=== PATIENT | female | born 1970 | race African-American/Black ===

== ENCOUNTER 2022-03-04 02:29 | Emergency (ER) | payer MEDICAID ==
[~2022-03-04] VITALS: Ht 170.2 cm; Wt 74.0 kg
[~2022-03-04 02:29] MED LIST: FAMO-135 MT
[2022-03-04 04:42] LABS: BASOPHILS % 0.6 % (0.0-2.0); EOSINOPHILS % 1.1 % (0.0-5.0); HEMATOCRIT. 40.4 % (36.0-48.0); MEAN CORPUSCULAR HEMOGLOBIN 34.4 pg (28.0-32.0); MEAN CORPUSCULAR VOLUME 99.2 fL (81.0-99.0); MEAN PLATELET VOLUME 8.2 fl (7.4-10.4); MONOCYTES % 10.1 % (2.0-8.0); NEUTROPHILS % 60.2 % (40.0-76.0); PLATELET 272 x1000/uL (130-400); RED BLOOD CELL COUNT 4.07 mill/uL (4.2-5.4); RED CELL DISTRIBUTION WIDTH 14.7 % (11.6-14.6)
[2022-03-04 04:49] LABS: CHLORIDE 101 mEq/L (98-107)
[2022-03-04] MEDS ORDERED: POTASSIUM CHLORIDE 20MEQ TABLET SR PO ONE (05:00)
[2022-03-04 08:00] VITALS: BP 126/79
== END 2022-03-04 09:53 | disposition short-term general hospital (02) ==
LOC: ER 02:29 → ENRESERV 07:13 → CANRESERV 07:13 → CANBEDREQ 08:26 → ER 09:53
DX: S72.032A Displaced midcervical fracture of left femur, initial encounter for closed fracture (principal); F10.229 Alcohol dependence with intoxication, unspecified; I10 Essential (primary) hypertension; Y90.6 Blood alcohol level of 120-199 mg/100 ml; Z20.822 Contact with and (suspected) exposure to COVID-19; W01.0XXA Fall on same level from slipping, tripping and stumbling without subsequent striking against object, initial encounter; Y93.89 Activity, other specified; Y92.018 Other place in single-family (private) house as the place of occurrence of the external cause
CPT/HCPCS: 36415; 72170; 80053; 80320; 85025; 86850; 86900; 87426; 99285; G0480